=== PATIENT | female | born 1985 | race Caucasian/White ===

== ENCOUNTER 2017-04-22 17:44 | Emergency (ER) | payer OTHER ==
[~2017-04-22] VITALS: Ht 167.6 cm; Wt 67.1 kg
[~2017-04-22 17:44] MED LIST: BUTISOL SODIUM30 MG; MORPHINE SULFAT15 MG; NORCO 7.5-3251 EACH PO; Z.0.LEVOCETIRIZINE D; ZYRTEC10 M3
--- OUTSIDE RECORDS SUMMARY | 2017-04-22 17:47 | XMS REPORT | Summary of Care ---
Author Author CARLOS OSORIO M.D. Unknown Address Unknown Phone Unavailable Care Team Providers Care Welder Tack Name Role Phone CARLOS OSORIO M.D. 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 * Refills: 0 Active Atenolol 25 MG Oral Tablet TAKE 1 TABLET DAILY DIRECTED. * Refills: 0 Active Lunesta 2 MG Oral Tablet TAKE 1 TABLET AT BEDTIME NEEDED. * Refills: 0 Active Adderall TABS TAKE 1 TABLET DAILY * Refills: 0 Active Xyzal 5 MG TABS TAKE 1 TABLET DAILY PRN * Refills: 0 Active Allergies and Adverse Reactions Name Dates Details Cipro (Allergy) Status: Active Dilaudid TABS (Allergy) Status: Active doxycycline (Allergy) Status: Active Levaquin (Allergy) Status: Active sulfa (Allergy) Status: Active Sulfa Drugs (Allergy) Status: Active Nickel (Allergy) Status: Active Procedures Procedure Dates Details History of shoulder surgery Completed History of appendectomy Completed History of breast reduction Completed History of tonsillectomy Completed Immunization Name Dates Details Immunizations not documented Family History Name Dates Details Family history of Hip dysplasia (755.63, Q65.89) Comments: Family History Status: Active Family history of cardiac disorder (V17.49, Z82.49) Comments: Family History Status: Active Family history of malignant neoplasm (V16.9, Z80.9) Comments: Family History Status: Active Family history of scoliosis (V17.89, Z82.69) Comments: Family History Status: Active Family history of diabetes mellitus (V18.0, Z83.3) Comments: Family History Status: Active Social History Name Dates Details - Status: Name Dates Details Never smoker Vital Signs Date Test Result Details No Known Vitals to report Results Date Description Value Details Results not documented Plan of Care Name Dates Details Planned Observations Planned Goals not documented Planned Encounters Appointment; CARLOS OSORIO M.D. On: 20-Apr-2017 13:30 Instructions Name Dates Details Instructions not documented Encounters Appointment; EDITH GUARDADO M.D. Encounter Diagnosis: Problem not documented On: 05-Jan-2017 13:30 Appointment; EDITH GUARDADO M.D. Encounter Diagnosis: Problem not documented On: 09-Feb-2017 13:30 Appointment; CARLOS OSORIO M.D. Encounter Diagnosis: Problem not documented On: 20-Apr-2017 13:30
--- OUTSIDE RECORDS SUMMARY | 2017-04-22 17:47 | XMS REPORT ---
Author Author [facility] Address Unknown Phone Unavailable Care Team Providers Care Patent Paralegal Name Role Phone LAINEY CEBALLOS Unavailable Unavailable Problems This patient has no known problems. Allergies, Adverse Reactions, Alerts This patient has no known allergies or adverse reactions. Medications This patient has no known medications. Encounters Start Date/Time End Date/Time Encounter Type Admission Type Attending Clinicians Care Facility Care Department Encounter ID 2016-05-06 16:00:00 2016-08-17 23:59:00 Outpatient C LAINEY CEBALLOS [facility] [id number]
[2017-04-22] MEDS ORDERED: CEPHALEXIN500 MG PO (19:45)
[2017-04-22] MEDS ORDERED: HYDROXYZINE HCL25 MG PO (19:46)
[2017-04-22] MEDS ORDERED: ONDANSETRON HCL 4 MG ORAL DISINTEGRATING TAB PO ONE (20:15)
[2017-04-22 20:23] VITALS: BP 115/68
== END 2017-04-22 20:20 | disposition home or self-care (01) ==
LOC: FSED 17:44
DX: L03.311 Cellulitis of abdominal wall (principal); L24.9 Irritant contact dermatitis, unspecified cause
CPT/HCPCS: 81025; 87071; 87186; 87205; 99283

== ENCOUNTER 2017-09-21 16:08 | Emergency (ER) | payer OTHER ==
[~2017-09-21] VITALS: Ht 167.6 cm; Wt 67.1 kg
[~2017-09-21 16:08] MED LIST changes: +CEPHALEXIN500 MG PO; +HYDROXYZINE HCL25 MG PO
[2017-09-21] MEDS ORDERED: HYDROCODONE/APAP 5MG-325MG TAB PO ONE (16:30)
[2017-09-21] MEDS ORDERED: MORPHINE SULFATE INJ 4 MG/ML INJ IV PRN (17:00)
== END 2017-09-21 18:02 | disposition home or self-care (01) ==
LOC: FSED 16:08
DX: S76.011A Strain of muscle, fascia and tendon of right hip, initial encounter (principal); X50.1XXA Overexertion from prolonged static or awkward postures, initial encounter
CPT/HCPCS: 99284

== ENCOUNTER 2017-12-20 16:12 | Emergency (ER) | payer OTHER ==
[~2017-12-20] VITALS: Ht 167.6 cm; Wt 67.1 kg
--- NOTE | 2017-12-20 17:08 | Diagnostic Imaging Report ---
Exam: Left wrist 3 views History: Pain Comparison: None. Findings: No fracture or malalignment. Joint spaces preserved. No abnormal soft tissue calcification or soft tissue defect. Impression: No acute osseous abnormality Signed by: Dr. Moe Esquivel M.D. on 12/20/2017 5:05 PM
== END 2017-12-20 17:25 | disposition home or self-care (01) ==
LOC: FSED 16:12
DX: M77.8 Other enthesopathies, not elsewhere classified (principal)
CPT/HCPCS: 99283

== ENCOUNTER 2018-07-27 13:38 | Emergency (ER) | payer BC, OTHER ==
[~2018-07-27] VITALS: Ht 167.6 cm; Wt 79.4 kg
--- OUTSIDE RECORDS SUMMARY | 2018-07-27 13:42 | XMS REPORT | Summary of Care ---
Author Author [facility] Address Unknown Phone Unavailable Encounter HQ Will(FIN) [id number] Date(s): 12/02/17 - 12/31/17 [facility] Encounter Diagnosis Pain in right hip (Final) - 01/05/18 Other chronic pain (Final) - Difficulty in walking, not elsewhere classified (Final) - Muscle weakness (generalized) (Final) - Stiffness of unspecified joint, not elsewhere classified (Final) - Discharge Disposition: Home or Self Care Attending Physician: Refugio Degroot MD Vital Signs No data available for this section Problem List Condition Effective Dates Status Health Status Informant Chronic fatigue Resolved syndrome(Confirmed) EDS (Kimberly-Danlos Resolved syndrome)(Confirmed) Fibromyalgia(Confirm Resolved ed) Insomnia(Confirmed) Resolved Migraines(Confirmed) Resolved Allergies, Adverse Reactions, Alerts No Known Medication Allergies Medications No data available for this section Results No data available for this section Immunizations No data available for this section Procedures Procedure Date Related Diagnosis Body Site Status Adenoidectomy Completed Appendectomy Completed Breast reduction Completed Tonsillectomy Completed Social History Social History Type Response Smoking Status Never smoker; Exposure to Tobacco Smoke None; Cigarette Smoking Last 365 Days No; Reg Smoking Cessation Counseling No entered on: 06/10/15 Assessment and Plan No data available for this section
--- OUTSIDE RECORDS SUMMARY | 2018-07-27 13:42 | XMS REPORT | Summary of Care ---
Author Author [facility] Address Unknown Phone Unavailable Encounter HQ Will(FIN) [id number] Date(s): 08/29/17 - 09/27/17 [facility] Encounter Diagnosis Dorsalgia, unspecified (Final) - 09/30/17 Difficulty in walking, not elsewhere classified (Final) - Pain in right hip (Final) - Pain in left shoulder (Final) - Other muscle spasm (Final) - Muscle weakness (generalized) (Final) - Discharge Disposition: Home or Self Care Attending Physician: Donovan Barba MD Vital Signs No data available for this section Problem List Condition Effective Dates Status Health Status Informant Chronic fatigue Resolved syndrome(Confirmed) EDS (Kimberly-Danlos Resolved syndrome)(Confirmed) Fibromyalgia(Confirm Resolved ed) Insomnia(Confirmed) Resolved Migraines(Confirmed) Resolved Allergies, Adverse Reactions, Alerts Substance Reaction Severity Status NKDA Active Medications No data available for this section [...]
--- OUTSIDE RECORDS SUMMARY | 2018-07-27 13:42 | XMS REPORT | Continuity of Care Document ---
Author Author Andrew carol [facility] Interface Address Unknown Phone Unavailable Problems Problem Status Onset Date Classification Date Reported Comments Source Pain in right hip 01/06/2018 07/20/2018 [facility] [place] WOUND ON RIGHT HIP Active 10/26/2017 [facility] LUMBAR Active 10/03/2017 [facility] [place] Dorsalgia, unspecified 10/01/2017 04/16/2018 [facility] [place] LUMBAR AND HIP Active 09/28/2017 [facility] [place] LUMBER AND HIP Active 09/28/2017 [facility] [place] RT HIP BACK Active 03/14/2017 [facility] [place] LOWER BACK PAIN AND HIP Active 03/14/2017 [facility] [place] LBP HIP Active 03/14/2017 [facility] [place] LOW BACK, HIP Active 03/14/2017 [facility] [place] LOW BACK HIP Active 03/14/2017 [facility] [place] 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 07/03/2015 [place] [place] Append[place] Active 12/18/2014 Problem 12/20/2017 [facility] Chronic fatigue syndrome Resolved Problem 07/20/2018 [facility] EDS (<span ID="[id number]">Confirmed</span>) Resolved Problem 07/20/2018 [facility] Fibromyalgia Resolved Problem 07/20/2018 [facility] [place] Insomnia Resolved Problem 07/20/2018 [facility] Migraines Resolved Problem 07/20/2018 [facility] Difficulty in walking, not elsewhere classified 07/20/2018 [facility] [place] Pain in left shoulder 04/16/2018 [facility] [place] Other muscle spasm 04/16/2018 [facility] [place] Muscle weakness 07/20/2018 [facility] [place] Other chronic pain 07/20/2018 [facility] [place] Stiffness of unspecified joint, not elsewhere classified 07/20/2018 [facility] [place] Medications Medication Details Route Status Patient Instructions Ordering Provider Order Date Source Cephalexin 500 Mg Capsule Three Times A Day Active [facility] 04/22/2017 [facility] Hydroxyzine Hcl 25 Mg Tablet Every 6 Hours as needed for Itching Active [facility] 04/22/2017 [facility] Levocetirizine Dihydrochloride 5 Mg Tablet, Active 12/18/2014 [facility] Butabarbital Sodium (Butisol Sodium) 30 Mg Tablet Active [facility] Cetirizine Hcl (Zyrtec) 10 Mg Capsule Active THERAPEUTICALLY SUBSTITUTED WITH LORATIDINE 10MG [facility] Hydrocodone Bit/Acetaminophen (Mereta 7.5-325 Tablet) 1 Each Tablet Every 4 Hours as needed for Pain Active [facility] Morphine Sulfate 15 Mg Tablet Active [facility] Allergies, Adverse Reactions, Alerts Substance Category Reaction Severity Reaction type Status Date Reported Comments Source Sulfa (Sulfonamide Antibiotics) Unknown Allergy to Substance Active 04/22/2017 [facility] No Known Medication Allergies Assertion Drug allergy [facility] Immunizations Immunization Date Given Site Status Last Updated Comments Source Results Order Name Results Value Reference Range Date Interpretation Comments Source Bacteria identification in wound by culture Bacteria identification in wound by culture Organism: ENTEROCOCCUS FAECALIS 04/23/2017 [facility] Vital Signs Vital Sign Value Date Comments Source Encounters Location Location Details Encounter Type Encounter Number Reason For Visit Attending Provider ADM Date DC Date Status Source Departed Emergency Room [id number] ANTWAN ESQUIVEL MD 04/22/2017 04/22/2017 [facility] [place] [facility] [id number] Donovan Lux 07/04/2017 08/03/2017 [facility] [place] [facility] [id number] Donovan Lux 08/03/2017 08/28/2017 [facility] [place] [facility] [id number] Donovan Lux 08/29/2017 09/28/2017 [facility] Departed Emergency Room [id number] IAIN BIGGS MD 09/21/2017 09/21/2017 [facility] [id number] Gorge Yara 11/16/2017 11/16/2017 [facility] [place] [facility] [id number] Refugio Degroot 12/02/2017 01/01/2018 [facility] [place] Departed Emergency Room [id number] JEFFERY GARCIA MD 12/20/2017 12/20/2017 [facility] [place] [facility] Patients [id number] Refugio Degroot 05/31/2018 06/30/2018 [facility] [place] Procedures Procedure Code Date Perfomer Comments Source Adenoidectomy [id number] [facility] [place] Appendectomy [id number] [facility] [place] Breast reduction [id number] [facility] [place] Tonsillectomy [id number] [facility] [place] Adenoidectomy [id number] [facility] Appendectomy [id number] [facility] Breast reduction [id number] [facility] Tonsillectomy [id number] [facility]
--- OUTSIDE RECORDS SUMMARY | 2018-07-27 13:42 | XMS REPORT | Clinical Summary ---
Author Author HARITHA [facility] Address Unknown Phone Unavailable Care Team Providers Care Advertising Supervisor Name Role Phone Donovan Barba PCP Allergies Comments Active Allergy Reactions Severity Noted Date Contraindicated for her condition Ciprofloxacin Other (See Medium 02/15/2018 Comments) vomiting Doxycycline Other (See Medium 11/27/2015 Comments) "Contraindicated for her condition" Levofloxacin Other (See Medium 09/08/2016 Comments) Sulfa (Sulfonamide Itching, Rash Low 05/17/2013 Antibiotics) Medications End Date Status Medication Sig Dispensed Refills Start Date Active dextroamphetamine/ampheta Take by 0 mine (ADDERALL ORAL) mouth. Active butalbital-acetaminophen- Take 1 tablet 0 caffeine (FIORICET, by mouth ESGIC) 50-325-40 mg per every 6 (six) tablet hours as needed for Headaches. Active pregabalin (LYRICA ORAL) Take by 0 mouth. Active methadone HCl (METHADONE Take by 0 ORAL) mouth. Active morphine (MSIR) 30 MG Take 30 mg by 0 tablet mouth every 4 (four) hours as needed for Pain. Active linaclotide (LINZESS) 290 Take 1 30 capsule 11 mcg Cap capsule (290 8 mcg total) by mouth daily. 03/13/2019 Active magnesium oxide (MAG-OX) Take 1 tablet 60 tablet 11 400 mg (241.3 mg (400 mg 8 magnesium) tablet total) by mouth 2 (two) times daily. Active naldemedine 0.2 mg Tab Take 0.2 mg 30 tablet 4 by mouth 8 daily. 02/15/2018 Discontinued cetirizine (ZYRTEC) 10 MG Take 10 mg by 0 tablet mouth daily. 02/15/2018 Discontinued valACYclovir (VALTREX) Take 500 mg 0 500 MG tablet by mouth daily. 02/15/2018 Discontinued traMADol (ULTRAM) 50 mg Take 50 mg by 0 tablet mouth every 6 (six) hours as needed. 02/15/2018 Discontinued citalopram (CELEXA) 20 MG Take 20 mg by 0 tablet mouth daily. 02/15/2018 Discontinued ibuprofen (ADVIL,MOTRIN) Take 200 mg 0 200 MG tablet by mouth every 6 (six) hours as needed. 02/15/2018 Discontinued zolpidem (AMBIEN) 5 MG Take 5 mg by 0 tablet mouth every night as needed. 02/15/2018 Discontinued HYDROcodone-acetaminophen Take 1 tablet 0 (NORCO 7.5-325) 7.5-325 by mouth mg per tablet every 6 (six) hours as needed. Active Problems Problem Noted Date Wound 06/08/2013 Macromastia 06/08/2013 Encounters Care Team Description Date Type Specialty Yomi Meraz MD COLONOSCOPY 03/13/2018 Surgery Rosalinda Francisco MD 03/13/2018 Anesthesia Event Yomi Meraz MD 03/13/2018 Hospital Encounter Resource, Omt Preadmit Phone 02/15/2018 Hospital Pre-Admission Testing Encounter after 07/26/2017 Social History Date Tobacco Use Types Packs/Day Years Used Never Smoker Smokeless Tobacco: Never Used Alcohol Use Drinks/Week oz/Week Comments No Sex Assigned at Date Recorded Not on file Industry Job Start Date Occupation Not on file Not on file Not on file Travel End Travel History Travel Start No recent travel history available. Last Filed Vital Signs Time Taken Vital Sign Reading 03/13/2018 11:55 AM BUILDING CERTIFIER Blood Pressure 117/69 03/13/2018 11:55 AM BUILDING CERTIFIER Pulse 63 03/13/2018 11:30 AM BUILDING CERTIFIER Temperature 36.5 C (97.7 F) 03/13/2018 11:55 AM BUILDING CERTIFIER Respiratory Rate 12 03/13/2018 11:55 AM BUILDING CERTIFIER Oxygen Saturation 100% - Inhaled Oxygen - Concentration 03/13/2018 10:42 AM BUILDING CERTIFIER Weight 75.8 kg (167 lb) 03/13/2018 10:42 AM BUILDING CERTIFIER Height 167.6 cm (5' 6") 03/13/2018 10:42 AM BUILDING CERTIFIER Body Mass Index 26.95 Plan of Treatment Not on file Procedures Comments Procedure Name Priority Date/Time Associated Diagnosis COLONOSCOPY 03/13/2018 RLQ abdominal pain 11:55 AM BUILDING CERTIFIER LLQ abdominal pain REPORT OF PROCEDURE - 03/13/2018 ENDOSCOPY URL 11:34 AM BUILDING CERTIFIER POCT , URINE Routine 03/13/2018 10:32 AM BUILDING CERTIFIER after 07/26/2017 Results * REPORT OF PROCEDURE - ENDOSCOPY URL (03/13/2018 11:34 AM BUILDING CERTIFIER) Narrative Performed At * POCT , urine (03/13/2018 10:32 AM BUILDING CERTIFIER) Test Urine, POC Negative Control line present?, Yes POC Background clear?, POC Yes UPT Cassette Lot #, POC [id number] UPT Cassette Expiration 07-12-2019 Date, POC Specimen Urine after 07/26/2017
--- OUTSIDE RECORDS SUMMARY | 2018-07-27 13:42 | XMS REPORT | Clinical Summary ---
Author Author [facility] Organization [facility] Address Unknown Phone Unavailable Care Team Providers Care Vehicle Refinisher Name Role Phone Donovan Barba MD PCP Allergies Comments Active Allergy Reactions Severity Noted Date Adhesive Tape-Silicones 10/22/2017 "Contraindicated for her condition" Ciprofloxacin Other (See 05/24/2017 Comments) Octyl 2-Cyanoacrylate 10/22/2017 vomiting Doxycycline GI 05/24/2017 Intolerance Gabapentin Swelling 10/25/2017 "Contraindicated for her condition" Levofloxacin Other (See 05/24/2017 Comments) Sulfa (Sulfonamide Rash Low 05/24/2017 Antibiotics) Medications End Date Status Medication Sig Dispensed Refills Start Date Active methadone (DOLOPHINE) 10 Take 10 mg by 0 MG tablet mouth every 6 (six) hours as needed for moderate pain, Active dextroamphetamine-ampheta Take 10 mg by 0 mine (ADDERALL) 10 mg mouth daily. tablet Active butalbital-acetaminophen- Take 1 tablet 0 caff (FIORICET, ESGIC) by mouth 50-325-40 mg per tablet every 4 (four) hours as needed for headaches. Active OXcarbazepine (TRILEPTAL) Take 150 mg 0 150 MG tablet by mouth 2 (two) times a day. 10/22/2017 Discontinued atenolol (TENORMIN) 25 MG Take 25 mg by 0 tablet mouth daily. 10/22/2017 Discontinued midodrine (PROAMATINE) 5 Take 5 mg by 0 MG tablet mouth daily. 10/28/2017 Discontinued zolpidem (AMBIEN) 10 mg Take 10 mg by 0 tablet mouth nightly. 10/28/2017 Discontinued oxyCODone-acetaminophen Take 2 0 (PERCOCET) 7.5-325 mg per tablets by tablet mouth every 4 (four) hours as needed for moderate pain. 11/27/2017 triazolam (HALCION) 0.25 Take 1 tablet 0 10/28/201 MG tablet (250 mcg 8 total) by mouth nightly as needed for sleep for up to 30 days. 11/04/2017 cefpodoxime (VANTIN) 200 Take 1 tablet 14 tablet 0 201 MG tablet (200 mg 8 total) by mouth 2 (two) times a day for 7 days. 11/27/2017 methadone (DOLOPHINE) 5 Take 3 0 201 MG tablet tablets by 8 mouth every 6 (six) hours for 30 days, 11/27/2017 morPHINE (MSIR) 15 MG Take 1 tablet 0 tablet (15 mg total) 8 by mouth every 4 (four) hours as needed for severe pain for up to 30 days. 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 Primary fibromyalgia syndrome 05/25/2017 Nausea 05/25/2017 Epigastric pain 05/24/2017 Overview: Added automatically from request for surgery [id number] Encounters Care Team Description Date Type Specialty Yanna Christopher MD Open wound (Primary Dx) 10/28/2017 Transcribe Wound Care Orders Kanu Pierre MD Tang, Phong Phat, MD Cellulitis of hip (Primary Dx); Wound dehiscence; Cellulitis of hip, right 10/22/2017 Hospital Orthopedic Surgery - Encounter 10/28/2017 after 07/26/2017 Family History Medical History Relation Name Comments Heart disease Maternal Grandfather Heart disease Maternal Grandmother Relation Name Status Comments Maternal Grandfather Maternal Grandmother Social History Date Tobacco Use Types Packs/Day Years Used Never Smoker Smokeless Tobacco: Never Used Alcohol Use Drinks/Week oz/Week Comments No Sex Assigned at Date Recorded Not on file Industry Job Start Date Occupation Not on file Not on file Not on file Travel End Travel History Travel Start No recent travel history available. Last Filed Vital Signs Time Taken Vital Sign Reading 10/28/2017 9:00 AM CDT Blood Pressure 93/59 10/28/2017 9:00 AM CDT Pulse 78 10/28/2017 7:51 AM CDT Temperature 36.4 C (97.6 F) 10/28/2017 7:51 AM CDT Respiratory Rate 18 10/28/2017 7:51 AM CDT Oxygen Saturation 97% - Inhaled Oxygen - Concentration 10/24/2017 9:00 AM CDT Weight 68 kg (149 lb 14.6 oz) 10/22/2017 1:11 PM CDT Height 167.6 cm (5' 6") 10/24/2017 9:00 AM CDT Body Mass Index 24.2 Plan of Treatment Health Maintenance Due Date Last Done Comments CERVICAL CANCER SCREENING 2008 INFLUENZA VACCINE 10/12/2018 Procedures Comments Procedure Name Priority Date/Time Associated Diagnosis HC COMPLETE BLD COUNT Routine 10/27/2017 W/AUTO DIFF 4:20 AM CDT ZZESTIMATED GFR Routine 10/27/2017 4:00 AM CDT HEPATIC FUNCTION PANEL Routine 10/27/2017 4:00 AM CDT MAGNESIUM LEVEL Routine 10/27/2017 4:00 AM CDT BASIC METABOLIC PANEL Routine 10/27/2017 4:00 AM CDT VANCOMYCIN LEVEL, TROUGH Timed 10/26/2017 4:00 AM CDT ZZESTIMATED GFR Routine 10/25/2017 5:40 AM CDT HEPATIC FUNCTION PANEL Routine 10/25/2017 5:40 AM CDT MAGNESIUM LEVEL Routine 10/25/2017 5:40 AM CDT BASIC METABOLIC PANEL Routine 10/25/2017 5:40 AM CDT HC COMPLETE BLD COUNT Routine 10/25/2017 W/AUTO DIFF 5:40 AM CDT XR PICC CHEST PORTABLE Routine 10/24/2017 Cellulitis of hip, right 1:30 PM CDT HC CATH DUAL LUMEN PICC Routine 10/24/2017 1:22 PM CDT HC US GUIDED VASCULAR Routine 10/24/2017 ACCESS 1:22 PM CDT HC CVL PICC INSERT 5 YRS Routine 10/24/2017 OR > W/O IMG GUID 1:22 PM CDT HC COMPLETE BLD COUNT Routine 10/24/2017 W/AUTO DIFF 6:16 AM CDT ZZESTIMATED GFR Routine 10/24/2017 4:00 AM CDT HEPATIC FUNCTION PANEL Routine 10/24/2017 4:00 AM CDT MAGNESIUM LEVEL Routine 10/24/2017 4:00 AM CDT BASIC METABOLIC PANEL Routine 10/24/2017 4:00 AM CDT GRAM STAIN Routine 10/23/2017 1:18 PM CDT AEROBIC CULTURE Routine 10/23/2017 1:18 PM CDT HEPATITIS ACUTE PANEL Routine 10/23/2017 8:00 AM CDT HC COMPLETE BLD COUNT Routine 10/23/2017 W/AUTO DIFF 8:00 AM CDT ZZESTIMATED GFR Routine 10/23/2017 4:00 AM CDT HEPATIC FUNCTION PANEL Routine 10/23/2017 4:00 AM CDT MAGNESIUM LEVEL Routine 10/23/2017 4:00 AM CDT BASIC METABOLIC PANEL Routine 10/23/2017 4:00 AM CDT US HEPATIC STAT 10/22/2017 7:56 PM CDT LACTIC ACID LEVEL, SEPSIS Timed 10/22/2017 - NOW AND REPEAT 2X EVERY 6:50 PM CDT 3 HOURS ZZESTIMATED GFR STAT 10/22/2017 4:10 PM CDT LACTIC ACID LEVEL, SEPSIS Timed 10/22/2017 - NOW AND REPEAT 2X EVERY 4:10 PM CDT 3 HOURS C-REACTIVE PROTEIN STAT 10/22/2017 4:10 PM CDT SEDIMENTATION RATE STAT 10/22/2017 4:10 PM CDT COMPREHENSIVE METABOLIC STAT 10/22/2017 PANEL 4:10 PM CDT CBC HEMOGRAM STAT 10/22/2017 4:10 PM CDT BLOOD CULTURE, AEROBIC & Routine 10/22/2017 ANAEROBIC 4:10 PM CDT BLOOD CULTURE, AEROBIC & Routine 10/22/2017 ANAEROBIC 4:10 PM CDT XR PELVIS 3+ VW STAT 10/22/2017 3:51 PM CDT XR HIP 2-3 VIEWS RIGHT STAT 10/22/2017 3:51 PM CDT XR FEMUR 2 VW RIGHT STAT 10/22/2017 3:51 PM CDT XR CHEST 1 VW STAT 10/22/2017 3:50 PM CDT after 07/26/2017 Results * CBC with platelet and differential (10/27/2017 4:20 AM CDT) Only the most recent of 4 results within the time period is included. WBC 3.92 (L) 4.50 - 11.00 k/uL [facility] DEPARTMENT OF PATHOLOGY AND GENOMIC MEDICINE RBC 3.41 (L) 4.20 - 5.50 m/uL [facility] DEPARTMENT OF PATHOLOGY AND GENOMIC MEDICINE HGB 10.4 (L) 12.0 - 16.0 g/dL [facility] DEPARTMENT OF PATHOLOGY AND GENOMIC MEDICINE HCT 32.2 (L) 37.0 - 47.0 % [facility] DEPARTMENT OF PATHOLOGY AND GENOMIC MEDICINE MCV 94.4 82.0 - 100.0 fL [facility] DEPARTMENT OF PATHOLOGY AND GENOMIC MEDICINE MCH 30.5 27.0 - 34.0 pg [facility] DEPARTMENT OF PATHOLOGY AND GENOMIC MEDICINE MCHC 32.3 31.0 - 37.0 g/dL [facility] DEPARTMENT OF PATHOLOGY AND GENOMIC MEDICINE RDW - SD 40.9 37.0 - 55.0 fL [facility] DEPARTMENT OF PATHOLOGY AND GENOMIC MEDICINE MPV 10.9 8.8 - 13.2 fL [facility] DEPARTMENT OF PATHOLOGY AND GENOMIC MEDICINE Platelet count 235 150 - 400 k/uL [facility] DEPARTMENT OF PATHOLOGY AND GENOMIC MEDICINE Nucleated RBC 0.00 /100 WBC [facility] DEPARTMENT OF PATHOLOGY AND GENOMIC MEDICINE Neutrophils 38.7 (L) 39.0 - 69.0 % [facility] DEPARTMENT OF PATHOLOGY AND GENOMIC MEDICINE Lymphocytes 35.7 25.0 - 45.0 % [facility] DEPARTMENT OF PATHOLOGY AND GENOMIC MEDICINE Monocytes 13.3 (H) 0.0 - 10.0 % [facility] DEPARTMENT OF PATHOLOGY AND GENOMIC MEDICINE Eosinophils 11.0 (H) 0.0 - 5.0 % [facility] DEPARTMENT OF PATHOLOGY AND GENOMIC MEDICINE Basophils 0.8 0.0 - 1.0 % [facility] DEPARTMENT OF PATHOLOGY AND GENOMIC MEDICINE Immature granulocytes 0.5Comment: "Immature 0.0 - 1.0 % [facility] DEPARTMENT OF granulocytes" (promyelocytes, PATHOLOGY AND myelocytes, metamyelocytes) GENOMIC MEDICINE Specimen Blood Performing Organization Address City/[facility] [place] [address] PATHOLOGY AND [facility] * Estimated GFR (10/27/2017 4:00 AM CDT) Only the most recent of 5 results within the time period is included. GFR Non Af Amer >90 mL/min/1.73 m2 [facility] DEPARTMENT OF PATHOLOGY AND GENOMIC MEDICINE GFR Af Amer >90 mL/min/1.73 m2 [facility] DEPARTMENT OF Comment: PATHOLOGY AND Chronic kidney disease: <60 GENOMIC MEDICINE mL/min/1.73m2 Kidney failure: <15 mL/min/1.73m2 The estimated GFR is calculated from the IDMS-traceable Modification of Diet in Renal Disease Equation. The accuracy of the calculation is poor when the creatinine is normal. Calculated values >90 mL/min/1.73m2 are not reported. This equation has not been validated in children (<18 years), women, the elderly (>70 years), or ethnic groups other than Caucasians and Americans. Specimen Plasma specimen Performing Organization Address City/[facility] Cent[facility]ode Phone Number [address] [address] PATHOLOGY [facility] * Magnesium level (10/27/2017 4:00 AM CDT) Only the most recent of 4 results within the time period is included. Magnesium 2.0 1.6 - 2.6 mg/dL [facility] DEPARTMENT OF PATHOLOGY AND GENOMIC MEDICINE Specimen Plasma specimen Performing Organization Address City/[facility] [place] [address] PATHOLOGY AND GENOMIC MEDICINE * Hepatic function panel (10/27/2017 4:00 AM CDT) Only the most recent of 4 results within the time period is included. Albumin 3.3 (L) 3.5 - 5.0 g/dL [facility] DEPARTMENT OF PATHOLOGY AND GENOMIC MEDICINE Total bilirubin <0.2 0.0 - 1.2 mg/dL [facility] DEPARTMENT OF PATHOLOGY AND GENOMIC MEDICINE Bilirubin direct <0.2 0.0 - 0.3 mg/dL [facility] DEPARTMENT OF PATHOLOGY AND GENOMIC MEDICINE Alkaline phosphatase 126 (H) 35 - 104 U/L [facility] DEPARTMENT OF PATHOLOGY AND GENOMIC MEDICINE Protein 6.7 6.3 - 8.3 g/dL [facility] DEPARTMENT OF Comment: PATHOLOGY AND GENOMIC MEDICINE 4.6-7.0 g/dL 1 week 4.4-7.6 g/dL 7 months-1year 5.1-7.3 g/dL 1-2 years5.6-7 .5 g/dL >3 years6.0-8 .0 g/dL 18-150 6.3-8.3 g/dL ALT 33 5 - 50 U/L [facility] DEPARTMENT OF PATHOLOGY AND GENOMIC MEDICINE AST 18 10 - 35 U/L [facility] DEPARTMENT OF PATHOLOGY AND GENOMIC MEDICINE Specimen Plasma specimen Performing Organization Address [facility] [place] [place] [address] PATHOLOGY AND GENOMIC MEDICINE * Basic metabolic panel (10/27/2017 4:00 AM CDT) Only the most recent of 4 results within the time period is included. Sodium 138 135 - 148 mEq/L [facility] DEPARTMENT OF PATHOLOGY AND GENOMIC MEDICINE Potassium 4.3 3.5 - 5.0 mEq/L [facility] DEPARTMENT OF PATHOLOGY AND GENOMIC MEDICINE Chloride 101 98 - 112 mEq/L [facility] DEPARTMENT OF PATHOLOGY AND GENOMIC MEDICINE CO2 25 24 - 31 mEq/L [facility] DEPARTMENT OF PATHOLOGY AND GENOMIC MEDICINE Anion gap 12@ANIO 7 - 15 mEq/L [facility] DEPARTMENT OF PATHOLOGY AND GENOMIC MEDICINE BUN 9 6 - 20 mg/dL [facility] DEPARTMENT OF PATHOLOGY AND GENOMIC MEDICINE Creatinine 0.7 0.5 - 0.9 mg/dL [facility] DEPARTMENT OF PATHOLOGY AND GENOMIC MEDICINE Glucose 101 (H) 65 - 99 mg/dL [facility] DEPARTMENT OF PATHOLOGY AND GENOMIC MEDICINE Calcium 9.0 8.3 - 10.2 mg/dL [facility] DEPARTMENT OF PATHOLOGY AND GENOMIC MEDICINE Specimen Plasma specimen Performing Organization Address City/[facility] [place] [address] PATHOLOGY AND GENOMIC MEDICINE * Vancomycin level, trough (10/26/2017 4:00 AM CDT) Vancomycin, trough 15.5 10.0 - 20.0 ug/mL [facility] DEPARTMENT OF Comment: PATHOLOGY AND Therapeutic Ranges: GENOMIC MEDICINE Peak 30.0 - 40.0 ug/mL Mxsrab71.0 - 20.0 ug/mL Specimen Serum Performing Organization Address [facility] Phone Number [address] [address] PATHOLOGY AND GENOMIC MEDICINE * XR Picc Chest Portable (10/24/2017 1:30 PM CDT) Narrative Performed At EXAMINATION:XR PICC CHEST PORTABLE [facility] CLINICAL HISTORY:L03.115 Cellulitis of right lower limb, Multiple IV meds COMPARISON:Chest x-ray 10/22/2017 IMPRESSION: Single frontal view reveals interval placement of a right-sided PICC line with tip overlying the SVC. The remainder of the examination is unchanged. [facility]-[id number] Procedure Note Interface, Radiology Results Incoming - 10/24/2017 1:48 PM CDT EXAMINATION: XR PICC CHEST PORTABLE CLINICAL HISTORY: L03.115 Cellulitis of right lower limb, Multiple IV meds COMPARISON: Chest x-ray 10/22/2017 IMPRESSION: Single frontal view reveals interval placement of a right-sided PICC line with tip overlying the SVC. The remainder of the examination is unchanged. [facility]-[id number] Performing Organization Address City/[facility]ode Phone Number [facility] [address] [place] [id number] * PICC INSERTION (10/24/2017 1:22 PM CDT) Narrative Performed At Anurag Sawyer RN 10/24/20171:26 PM PICC insertion Date/Time: 10/24/2017 1:23 PM Performed by: LUIS EDUARDO BEASLEY Authorized by: JAMES DAVIS Consent: Consent obtained:Verbal Consent given by:Patient Risks discussed: arterial puncture, incorrect placement, nerve damage, bleeding, infection, superficial thrombus and deep vein thrombus Alternatives discussed:Alternative treatment [place] protocol: Procedure explained and questions answered to patient or proxy's satisfaction: yes Relevant documents present and verified: yes Test results available and properly labeled: yes Imaging studies available: yes Required blood products, implants, devices, and special equipment available: yes Site/side marked: yes Immediately prior to procedure, a time out was called: yes Patient identity confirmed:Verbally with patient, arm band, provided demographic data and hospital-assigned identification number Pre-procedure details: Hand hygiene: Hand hygiene performed prior to insertion Sterile barrier technique: All elements of maximal sterile technique followed Skin preparation:2% chlorhexidine Skin preparation agent: Skin preparation agent completely dried prior to procedure Anesthesia (see MAR for exact dosages): Anesthesia method:Local infiltration Local anesthetic:Lidocaine 1% w/o epi PICC Line Placement Details (Will create an LDA): Patient position:Flat Vessel Size (mm): 5.1. Indication For PICC: multiple IV. Location:Right basilic Device Type:Non-valved Catheter size:5 Fr PICC Characteristics: Catheter Brand:Bioflo PICC External Catheter Length (cm):0 Internal Catheter Length (cm):39 Total Catheter Length (cm):39 Catheter Lot Number:[id number] Catheter Expiration Date:05/12/2019 Procedure Details: Landmarks identified: yes Ultrasound guidance: yes Sterile ultrasound techniques: Sterile gel and sterile probe covers were used Number of attempts:1 Number of PICC kits used during procedure:1 Purpose of procedure:PICC Placement Successful PICC Placement: Yes Patency/Placement:Flushes without difficulty, flushed with 10 mL normal saline, positive blood return, x-ray placement verified and injection cap placed PICC placed utlizing ultrasound-guided Modified Seldinger Technique: Yes Dressing/Securement:Dressing dry and intact, catheter securement device, transparent semipermeable dressing and antimicrobial dressing applied Blood Loss Amount:Less than 20 mL Post-Procedure Details: Post-procedure:Dressing applied Tip placement confirmed by chest x-ray: Yes Patient tolerance of procedure:Tolerated well, no immediate complications * Aerobic culture (10/23/2017 1:18 PM CDT) Aerobic culture isolate No growth after 3 days. [facility] DEPARTMENT OF Comment: PATHOLOGY AND Specimen Information GENOMIC MEDICINE Specimen Source: Wound Specimen Site: Hip Specimen Wound - Hip Performing Organization Address City/[facility]ode Phone Number [facility] DEPARTMENT OF [address] [place] [phone] PATHOLOGY AND GENOMIC MEDICINE * Gram stain (10/23/2017 1:18 PM CDT) Gram stain isolate No WBC's or organisms seen. [facility] DEPARTMENT OF Comment: PATHOLOGY AND Specimen Information GENOMIC MEDICINE Specimen Source: Wound Specimen Site: Hip Specimen Wound - Hip Performing Organization Address [facility]/Zipcode Phone Number [facility] DEPARTMENT OF [address] [place] [id number] PATHOLOGY AND GENOMIC MEDICINE * Hepatitis acute panel (10/23/2017 8:00 AM CDT) Hepatitis A IgM Non-reactive Non-reactive [facility] DEPARTMENT OF PATHOLOGY AND GENOMIC MEDICINE Hepatitis B core IgM Non-reactive Non-reactive [facility] DEPARTMENT OF PATHOLOGY AND GENOMIC MEDICINE Hepatitis B surface Ag Non-reactive Non-reactive [facility] DEPARTMENT OF PATHOLOGY AND GENOMIC MEDICINE Hepatitis C Ab Non-reactive Non-reactive [facility] DEPARTMENT OF PATHOLOGY AND GENOMIC MEDICINE Specimen Serum Performing Organization Address [facility] Phone Number [facility] DEPARTMENT OF [address] [place] [phone] PATHOLOGY AND GENOMIC MEDICINE * US Hepatic (10/22/2017 7:56 PM CDT) Narrative Performed At EXAM: US HEPATIC [facility]IANT CLINICAL DATA:abl lft COMPARISON: None. FINDINGS: Liver:The liver demonstrates normal echogenicity without focal mass. MPV:Doppler evaluation of the portal vein demonstrates normal hepatopedal flow. Main portal vein diameter 0.9 cm. Gallbladder:The gallbladder is without evidence of calculi. The gallbladder wall is not thickened and there is no pericholecystic fluid. Bile ducts:Common bile duct measures 5 mm, within normal limits. No intrahepatic biliary dilatation. Ascites:No abnormal abdominal fluid collections are visualized. There is no evidence of ascites. Pleural effusion:There are no pleural effusions. IMPRESSION: Normal abdominal ultrasound examination. [facility]-[id number] Procedure Note Hm Interface, Radiology Results Incoming - 10/22/2017 9:49 PM CDT EXAM: US HEPATIC CLINICAL DATA: abl lft COMPARISON: None. FINDINGS: Liver: The liver demonstrates normal echogenicity without focal mass. MPV: Doppler evaluation of the portal vein demonstrates normal hepatopedal flow. Main portal vein diameter 0.9 cm. Gallbladder: The gallbladder is without evidence of calculi. The gallbladder wall is not thickened and there is no pericholecystic fluid. Bile ducts: Common bile duct measures 5 mm, within normal limits. No intrahepatic biliary dilatation. Ascites: No abnormal abdominal fluid collections are visualized. There is no evidence of ascites. Pleural effusion: There are no pleural effusions. IMPRESSION: Normal abdominal ultrasound examination. [facility]-[id number] Performing Organization Address [facility]/[place] [address] * Lactic acid level, SEPSIS - Now and repeat 2x every 3 hours (10/22/2017 6:50 PM CDT) Only the most recent of 2 results within the time period is included. Lactic acid 1.1 0.5 - 2.2 mmol/L [facility] DEPARTMENT OF PATHOLOGY AND GENOMIC MEDICINE Specimen Blood Performing Organization Address [facility]ode Phone Number [facility] [place] [address] PATHOLOGY AND GENOMIC MEDICINE * Blood culture, aerobic & anaerobic (10/22/2017 4:10 PM CDT) Only the most recent of 2 results within the time period is included. Blood culture isolate No growth after 5 days of [facility] DEPARTMENT OF incubation. PATHOLOGY AND Comment: GENOMIC MEDICINE Specimen Information Specimen Source: Blood Specimen Site: Forearm Left Specimen Blood Performing Organization Address [facility] [place] [address] PATHOLOGY AND GENOMIC MEDICINE * Sedimentation rate (10/22/2017 4:10 PM CDT) Sedimentation rate 36 (H) 0 - 20 mm/hr [facility] DEPARTMENT OF PATHOLOGY AND GENOMIC MEDICINE Specimen Blood Performing Organization Address [facility] [place] [address] PATHOLOGY AND [facility] * CBC hemogram (10/22/2017 4:10 PM CDT) WBC 5.44 4.50 - 11.00 k/uL [facility] DEPARTMENT OF PATHOLOGY AND GENOMIC MEDICINE RBC 3.44 (L) 4.20 - 5.50 m/uL [facility] DEPARTMENT OF PATHOLOGY AND GENOMIC MEDICINE HGB 10.6 (L) 12.0 - 16.0 g/dL [facility] DEPARTMENT OF PATHOLOGY AND GENOMIC MEDICINE HCT 32.4 (L) 37.0 - 47.0 % [facility] DEPARTMENT OF PATHOLOGY AND GENOMIC MEDICINE MCV 94.2 82.0 - 100.0 fL [facility] DEPARTMENT OF PATHOLOGY AND GENOMIC MEDICINE MCH 30.8 27.0 - 34.0 pg [facility] DEPARTMENT OF PATHOLOGY AND GENOMIC MEDICINE MCHC 32.7 31.0 - 37.0 g/dL [facility] DEPARTMENT OF PATHOLOGY AND GENOMIC MEDICINE RDW - SD 40.5 37.0 - 55.0 fL [facility] DEPARTMENT OF PATHOLOGY AND GENOMIC MEDICINE MPV 10.7 8.8 - 13.2 fL [facility] DEPARTMENT OF PATHOLOGY AND GENOMIC MEDICINE Platelet count 350 150 - 400 k/uL [facility] DEPARTMENT OF PATHOLOGY AND GENOMIC MEDICINE Nucleated RBC 0.00 /100 WBC [facility] DEPARTMENT OF PATHOLOGY AND GENOMIC MEDICINE Specimen Blood Performing Organization Address City/[facility] [place] [address] PATHOLOGY AND GENOMIC MEDICINE * C-reactive protein (10/22/2017 4:10 PM CDT) CRP 0.41 0.00 - 0.50 mg/dL [facility] DEPARTMENT OF PATHOLOGY AND GENOMIC MEDICINE Specimen Plasma specimen Performing Organization Address City/State/[facility] [place] [address] PATHOLOGY AND GENOMIC MEDICINE * Comprehensive metabolic panel (10/22/2017 4:10 PM CDT) Sodium 140 135 - 148 mEq/L [facility] DEPARTMENT OF PATHOLOGY AND GENOMIC MEDICINE Potassium 3.8 3.5 - 5.0 mEq/L [facility] DEPARTMENT OF PATHOLOGY AND GENOMIC MEDICINE Chloride 102 98 - 112 mEq/L [facility] DEPARTMENT OF PATHOLOGY AND GENOMIC MEDICINE CO2 24 24 - 31 mEq/L [facility] DEPARTMENT OF PATHOLOGY AND GENOMIC MEDICINE Anion gap 14@ANIO 7 - 15 mEq/L [facility] DEPARTMENT OF PATHOLOGY AND GENOMIC MEDICINE BUN 7 6 - 20 mg/dL [facility] DEPARTMENT OF PATHOLOGY AND GENOMIC MEDICINE Creatinine 0.7 0.5 - 0.9 mg/dL [facility] DEPARTMENT OF PATHOLOGY AND GENOMIC MEDICINE Glucose 96 65 - 99 mg/dL [facility] DEPARTMENT OF PATHOLOGY AND GENOMIC MEDICINE Calcium 9.2 8.3 - 10.2 mg/dL [facility] DEPARTMENT OF PATHOLOGY AND GENOMIC MEDICINE Protein 7.2 6.3 - 8.3 g/dL [facility] DEPARTMENT OF Comment: PATHOLOGY AND [place] GENOMIC MEDICINE 4.6-7.0 g/dL 1 week 4.4-7.6 g/dL 7 months-1year 5.1-7.3 g/dL 1-2 years5.6-7 .5 g/dL >3 years6.0-8 .0 g/dL 18-150 6.3-8.3 g/dL Albumin 3.5 3.5 - 5.0 g/dL [facility] DEPARTMENT OF PATHOLOGY AND GENOMIC MEDICINE A/G ratio 0.9 0.7 - 3.8 [facility] DEPARTMENT OF PATHOLOGY AND GENOMIC MEDICINE Alkaline phosphatase 163 (H) 35 - 104 U/L [facility] DEPARTMENT OF PATHOLOGY AND GENOMIC MEDICINE AST 79 (H) 10 - 35 U/L [facility] DEPARTMENT OF PATHOLOGY AND GENOMIC MEDICINE ALT 103 (H) 5 - 50 U/L [facility] DEPARTMENT OF PATHOLOGY AND GENOMIC MEDICINE Total bilirubin <0.2 0.0 - 1.2 mg/dL [facility] DEPARTMENT OF PATHOLOGY AND GENOMIC MEDICINE Specimen Plasma specimen Performing Organization Address City/State/Zipcode Phone Number [facility] DEPARTMENT OF [address] [place] [address] PATHOLOGY AND GENOMIC MEDICINE * XR Pelvis 3+ Vw (10/22/2017 3:51 PM CDT) Narrative Performed At EXAM:XR PELVIS 3VW [facility] HISTORY:possible osteo COMPARISON:None available IMPRESSION: 1.There are healing fractures of the right iliac bone and right superior pubic ramus extending to the right acetabulum. 4 metallic screws are in the right iliac bone is cortical thinning over the screws laterally. Osteomyelitis not excluded. 2.The joint spaces are preserved. 3.Soft tissue swelling overlies the right hip. An IUD projects over the pelvis at midline. [id number] Procedure Note Interface, Radiology Results Incoming - 10/22/2017 4:20 PM CDT EXAM: XR PELVIS 3 VW HISTORY: possible osteo COMPARISON: None available IMPRESSION: 1. There are healing fractures of the right iliac bone and right superior pubic ramus extending to the right acetabulum. 4 metallic screws are in the right iliac bone is cortical thinning over the screws laterally. Osteomyelitis not excluded. 2. The joint spaces are preserved. 3. Soft tissue swelling overlies the right hip. An IUD projects over the pelvis at midline. [id number] Performing Organization Address [facility]/Zipcode Phone Number [facility] [address] [place] [address] * XR Hip 2-3 View Right (10/22/2017 3:51 PM CDT) Narrative Performed At EXAM:XR HIP 2-3 VIEWS RIGHT [facility] HISTORY:wound infection COMPARISON:None available IMPRESSION: 1. No displaced fracture or dislocation. 2. Metallic screws are noted in the right iliac wing. There is cortical lucency overlying the screws. Hardware infection/osteomyelitis not excluded. 3. Soft tissue swelling overlies the right hip. [id number] Procedure Note Interface, Radiology Results Incoming - 10/22/2017 3:57 PM CDT EXAM: XR HIP 2-3 VIEWS RIGHT HISTORY: wound infection COMPARISON: None available IMPRESSION: 1. No displaced fracture or dislocation. 2. Metallic screws are noted in the right iliac wing. There is cortical lucency overlying the screws. Hardware infection/osteomyelitis not excluded. 3. Soft tissue swelling overlies the right hip. [facility]-[id number] Performing Organization Address [facility]/[place] Phone Number [facility] [address] [place] [address] * XR Femur 2 Vw Right (10/22/2017 3:51 PM CDT) Narrative Performed At EXAM:XR FEMUR 2 VW RIGHT [facility] HISTORY:infectionpossible osteo COMPARISON:None available IMPRESSION: 1.There is a healing fracture of the right iliac bone and right superior pubic ramus.Cortical thinning adjacent to surgical hardware in the right iliac bone is partially visualized concerning for osteomyelitis. 2.The joint spaces are preserved. 3.Soft tissue swelling overlies the right pelvis. [facility]-[id number] Procedure Note Interface, Radiology Results Incoming - 10/22/2017 4:18 PM CDT EXAM: XR FEMUR 2 VW RIGHT HISTORY: infection possible osteo COMPARISON: None available IMPRESSION: 1. There is a healing fracture of the right iliac bone and right superior pubic ramus. Cortical thinning adjacent to surgical hardware in the right iliac bone is partially visualized concerning for osteomyelitis. 2. The joint spaces are preserved. 3. Soft tissue swelling overlies the right pelvis. [id number] Performing Organization Address City/[facility]/Zipcode Phone Number [facility] [address] [place] [address] * XR Chest 1 Vw (10/22/2017 3:50 PM CDT) Narrative Performed At EXAMINATION:XR CHEST 1 VW [facility] CLINICAL HISTORY:infection COMPARISON:None available IMPRESSION: 1.The lungs are clear of acute infiltrate, consolidation, or pleural effusion. 2.The cardiomediastinal silhouette is unremarkable. 3.The visualized osseous structures are intact. [id number] Procedure Note Hm Interface, Radiology Results Incoming - 10/22/2017 3:58 PM CDT EXAMINATION: XR CHEST 1 VW CLINICAL HISTORY: infection COMPARISON: None available IMPRESSION: 1. The lungs are clear of acute infiltrate, consolidation, or pleural effusion. 2. The cardiomediastinal silhouette is unremarkable. 3. The visualized osseous structures are intact. [id number] Performing Organization Address City/State/Zipcode Phone Number [facility] SANT[facility] [address] [place] [address] after 07/26/2017 Insurance Payer Benefit Subscriber ID Type Phone Address Plan / Group AETNA AETNA xxxxxxxxxx HMO HMO,POS,EP O, [employer] ([place]) [place] [address] Advance Directives Patient has advance care planning documents, and code status on file. For more i nformation, please contact: Sarmad Piedra [address] [place] [address] Date Inactivated Comments Code Status Date Activated 06/01/2017 7:38 PM Full Code 05/25/2017 9:07 AM Code Status decision reached by: Patient
--- OUTSIDE RECORDS SUMMARY | 2018-07-27 13:42 | XMS REPORT | Summary of Care ---
Author Author [facility] Address Unknown Phone Unavailable Encounter HQ Encntr_aliannita(FIN) [id number] Date(s): 05/31/18 - 06/29/18 Critical access hospital Discharge Disposition: Home or Self Care Attending [...]
--- OUTSIDE RECORDS SUMMARY | 2018-07-27 13:42 | XMS REPORT | Summary of Care ---
Author Author [facility] Organization [facility] Address Unknown Phone Unavailable Encounter HQ Will(HIMANSHU) [id number] Date(s): 11/16/17 - 11/16/17 [facility] [address], [place] [address]RUST [phone] Attending Physician: Gorge Livingston MD Referring Physician: Gorge Livingston MD Vital Signs No data available for [...]
[2018-07-27] MEDS ORDERED: KETOROLAC TROMETHAMINE 30 MG/ML VIAL IV NR (13:50)
--- NOTE | 2018-07-27 16:02 | Diagnostic Imaging Report ---
EXAMINATION: CT scan of the chest without contrast. TECHNIQUE: Spiral CT images of the chest were performed from the lung apices to the level of the adrenal glands. No intravenous contrast was administered per referring physician request. Coronal and sagittal reformatted images were obtained. COMPARISON: None. CLINICAL HISTORY:Chest pressure x1 week DISCUSSION: ABSENCE OF INTRAVENOUS CONTRAST DECREASES SENSITIVITY FOR DETECTION OF FOCAL LESIONS AND VASCULAR PATHOLOGY. LINES/TUBES: None. LUNGS AND AIRWAYS: Minimal reticular and groundglass opacity in the dependent lower lobes left greater than right compatible with subsegmental atelectasis. No airspace consolidation, bronchiectasis, or gross mass lesion. PLEURA: No pneumothorax or pleural effusions. HEART AND MEDIASTINUM: Visualized thyroid gland is unremarkable. Normal heart size. There is no ectasia or aneurysmal dilatation of the thoracic aorta. Pulmonary outflow tract is of normal caliber. No pericardial effusion. LYMPH NODES: No axillary, hilar, or mediastinal lymphadenopathy. ABDOMEN: Visualized portions of the liver, spleen, pancreas, and adrenal glands are unremarkable. Incidental note of punctate nonobstructing calculi in the left upper pole renal collecting system. BONES AND SOFT TISSUES: No acute osseous abnormalities. IMPRESSION: Minimal subsegmental atelectasis in the dependent portions of the lower lungs. Otherwise no intrathoracic abnormalities. Incidentally noted nonobstructing left renal calculi. Signed by: Dr. Juanjose Waller M.D. on 07/27/2018 3:59 PM
[2018-07-27 16:21] VITALS: BP 126/76
== END 2018-07-27 17:05 | disposition home or self-care (01) ==
LOC: FSED 13:38
DX: R07.89 Other chest pain (principal); M94.0 Chondrocostal junction syndrome [Tietze]
CPT/HCPCS: 71250; 80053; 82553; 84484; 85025; 85379; 99284

== ENCOUNTER 2020-10-31 18:04 | Emergency (ER) | payer BC, OTHER ==
[~2020-10-31] VITALS: Ht 167.6 cm; Wt 89.4 kg
[2020-10-31] MEDS ORDERED: FAMOTIDINE 20 MG/2 ML VIAL IV STA (18:54)
[2020-10-31] MEDS ORDERED: DONNATAL/LIDOCAINE/MAALOX 30 ML SUSP PO ONE (19:00)
[2020-10-31] MEDS ORDERED: BELLADONNA ALK/PHENOBARBITAL 5 ML UDC ONE (19:16)
[2020-10-31] MEDS ORDERED: LIDOCAINE VISC 2% SOLN 15 ML UDC ONE (19:16)
[2020-10-31] MEDS ORDERED: MAGNESIUM/ALUMINUM/SIMETHICONE 30 ML UDC ONE (19:16)
[2020-10-31] MEDS ORDERED: LYRICA100 MG PO (19:55)
[2020-10-31] MEDS ORDERED: ADDERALL 20 MG20 MG (19:55)
[2020-10-31] MEDS ORDERED: METHADONE HCL10 MG PO (19:55)
[2020-10-31] MEDS ORDERED: HALCION0.25 MG (19:55)
[2020-10-31] MEDS ORDERED: SODIUM CHLORIDE 0.9% 50ML 50 ML ONE (20:20)
[2020-10-31] MEDS ORDERED: IOPAMIDOL 370 MG/ML 200 ML INFUS..BTL INJ ONE (20:21)
== END 2020-10-31 20:30 | disposition home or self-care (01) ==
LOC: FSED 18:42
DX: K29.70 Gastritis, unspecified, without bleeding (principal); R07.9 Chest pain, unspecified; R10.13 Epigastric pain; Z88.1 Allergy status to other antibiotic agents; Z88.2 Allergy status to sulfonamides; Z88.8 Allergy status to other drugs, medicaments and biological substances
CPT/HCPCS: 71275; 80048; 80076; 81003; 81025; 82553; 84484; 85025; 93005; 99284; Q9967

== ENCOUNTER 2021-08-20 17:28 | Emergency (ER) | payer BC, OTHER ==
[~2021-08-20] VITALS: Ht 167.6 cm; Wt 97.3 kg
[~2021-08-20 17:28] MED LIST changes: +ADDERALL 20 MG20 MG; +HALCION0.25 MG; +LYRICA100 MG PO; +METHADONE HCL10 MG PO; +ONDANSETRON ODT8 MG PO
[2021-08-20] MEDS ORDERED: Morphine 4mg Syringe 4 MG/ML INJ IV STA (18:34)
[2021-08-20] MEDS ORDERED: ONDANSETRON HCL INJ 2MG/ML 2ML 2 MG/ML VIAL IV STA (18:34)
[2021-08-20] MEDS ORDERED: ONDANSETRON HCL INJ 2MG/ML 2ML 2 MG/ML VIAL ONE (18:54)
[2021-08-20] MEDS ORDERED: Morphine 4mg Syringe 4 MG/ML INJ ONE (18:54)
== END 2021-08-20 19:17 | disposition home or self-care (01) ==
LOC: FSED 17:42
DX: R07.89 Other chest pain (principal); R06.00 Dyspnea, unspecified; R11.0 Nausea; M79.7 Fibromyalgia; Q79.60 Ehlers-Danlos syndrome, unspecified; G47.00 Insomnia, unspecified; R94.31 Abnormal electrocardiogram [ECG] [EKG]
CPT/HCPCS: 71046; 80048; 80307; 81003; 81025; 82553; 84484; 85025; 85379; 93005; 99284; J2270; J2405

== ENCOUNTER 2021-09-18 16:51 | Emergency (ER) | payer BC, OTHER ==
[~2021-09-18] VITALS: Ht 167.6 cm; Wt 96.7 kg
[2021-09-18] MEDS ORDERED: ALBUTEROL/IPRATROPIUM 3 ML NEB NEB ONE (17:45)
[2021-09-18] MEDS ORDERED: ALBUTEROL/IPRATROPIUM 3 ML NEB ONE (18:02)
[2021-09-18] MEDS ORDERED: PROMETHAZINE-C473 ML PO (18:12)
[2021-09-18] MEDS ORDERED: PROVENTIL HFA6.7 GM INH (18:27)
[2021-09-18] MEDS ORDERED: PREDNISONE20 MG PO (18:29)
[2021-09-18] MEDS ORDERED: PREDNISONE 20 MG TAB PO ONE (18:30)
[2021-09-18] MEDS ORDERED: PREDNISONE 20 MG TAB ONE (18:40)
== END 2021-09-18 19:00 | disposition home or self-care (01) ==
LOC: FSED 17:10
DX: J98.01 Acute bronchospasm (principal); J06.9 Acute upper respiratory infection, unspecified; R07.9 Chest pain, unspecified; M54.9 Dorsalgia, unspecified; Q79.60 Ehlers-Danlos syndrome, unspecified; Z88.2 Allergy status to sulfonamides; Z88.8 Allergy status to other drugs, medicaments and biological substances; Z88.1 Allergy status to other antibiotic agents; Z91.041 Radiographic dye allergy status; Z86.19 Personal history of other infectious and parasitic diseases
CPT/HCPCS: 71046; 83518; 93005; 99283; J7512

== ENCOUNTER 2024-03-27 20:13 | Emergency (ER) | payer OTHER ==
[~2024-03-27] VITALS: Ht 167.6 cm; Wt 93.0 kg
[~2024-03-27 20:13] MED LIST changes: +BROMPHENIR-PSE118 ML PO; +CEFDINIR300 MG PO; +PREDNISONE20 MG PO; +PROMETHAZINE-C473 ML PO; +PROVENTIL HFA6.7 GM INH; +RAMIPRIL5 MG PO
[2024-03-27 20:38] VITALS: TEMP 97.1
[2024-03-27 22:45] VITALS: PULSE 65; RESP 18
[2024-03-27] MEDS ORDERED: IOPAMIDOL 370 MG/ML 100 ML INFUS..BTL INJ ONE (22:48)
[2024-03-27] MEDS: NIFEDIPINE 10 MG CAP PO STA (22:54)
[2024-03-27] MEDS: Morphine 4mg INJECTION 4 MG/ML INJ IV ONE (22:55)
[2024-03-27] MEDS: ONDANSETRON HCL INJ 2MG/ML 2ML 2 MG/ML VIAL IV STA (22:55)
[2024-03-27] MEDS: DIPHENHYDRAMINE HCL INJ 50 MG/ML VIAL IV ONE (23:11)
[2024-03-27] MEDS: DEXAMETHASONE SOD PHOS INJ 4 MG/ML SDV IV ONE (23:11)
[2024-03-27] MEDS ORDERED: CARAFATE1 GM PO (23:42)
[2024-03-27] MEDS ORDERED: MACROBID 100 M100 MG PO (23:58)
[2024-03-28] MEDS ORDERED: COREG6.25 MG PO
[2024-03-28 00:15] VITALS: BP 152/85; PULSE 80; RESP 18; TEMP 97.8; O2SAT 100
== END 2024-03-28 00:15 | disposition home or self-care (01) ==
LOC: FSED 20:37
DX: R10.13 Epigastric pain (principal); N39.0 Urinary tract infection, site not specified; I10 Essential (primary) hypertension; R11.0 Nausea; M79.7 Fibromyalgia; G47.00 Insomnia, unspecified; M41.9 Scoliosis, unspecified; F32.A Depression, unspecified; M54.9 Dorsalgia, unspecified; G89.29 Other chronic pain
CPT/HCPCS: 71260; 74177; 80053; 80076; 81003; 81025; 84484; 85025; 85379; 93005; 96374; 96375; 99284; J1100; J1200; J2270; J2405; Q9967

== ENCOUNTER 2024-10-27 12:50 | Emergency (ER) | payer OTHER ==
[~2024-10-27] VITALS: Ht 167.6 cm; Wt 93.2 kg
[~2024-10-27 12:50] MED LIST changes: +CARAFATE1 GM PO; +COREG6.25 MG PO; +MACROBID 100 M100 MG PO; -MORPHINE SULFAT15 MG; +MORPHINE SULFAT15 MG PO
[2024-10-27] MEDS ORDERED: PROTONIX20 MG PO (13:35)
[2024-10-27] MEDS ORDERED: METHADONE HCL10 MG PO (13:35)
[2024-10-27] MEDS ORDERED: ATORVASTATIN CA20 MG PO (13:35)
[2024-10-27] MEDS ORDERED: CEFDINIR300 MG PO (13:44)
[2024-10-27] MEDS ORDERED: ONDANSETRON ODT4 MG PO (13:44)
[2024-10-27] MEDS ORDERED: IBUPROFEN600 MG PO (13:44)
[2024-10-27] MEDS: ACETAMINOPHEN 325 MG TAB PO ONE (13:48)
[2024-10-27] MEDS: LACTATED RINGER'S 1,000 ML INJ ONE (13:48)
[2024-10-27] MEDS: KETOROLAC TROMETHAMINE 30 MG/ML VIAL IV STA (13:49)
[2024-10-27 15:07] VITALS: PULSE 69; RESP 16; TEMP 97.7; O2SAT 100
== END 2024-10-27 15:23 | disposition home or self-care (01) ==
LOC: FSED 12:57
DX: M54.50 Low back pain, unspecified (principal); N39.0 Urinary tract infection, site not specified; R10.30 Lower abdominal pain, unspecified; R53.81 Other malaise; I10 Essential (primary) hypertension; F32.A Depression, unspecified; M79.7 Fibromyalgia
CPT/HCPCS: 74176; 80053; 81003; 81025; 85025; 87086; 96374; 99284; J0696; J1885; J7121